=== PATIENT | female | born 1945 | race Caucasian/White ===

== ENCOUNTER 2018-02-05 10:53 | Emergency (ER) | payer MEDICARE ==
[~2018-02-05] VITALS: Ht 157.5 cm; Wt 59.0 kg
[2018-02-05 10:55] VITALS: BP 151/102
--- NOTE | 2018-02-05 11:33 | RAD ---
Left ankle 3 views. HISTORY: Left ankle pain, fell 3 views were taken of the left ankle. There is no acute fracture. There is an old fracture of the fifth metatarsal. There is calcification at the plantar aspect calcaneus and at the insertion of the Achilles tendon. There is mild arthritis with slight spurring at the ankle. IMPRESSION: 1. No acute fracture noted in the left ankle. Electronically signed by: Phil Su MD (02/05/2018 11:30 AM) [facility]
--- NOTE | 2018-02-05 15:25 | ED.ADGEN ---
Past History Past Medical History: Asthma, Diabetes, Hypertension, Hypothyroid, TIA Past Surgical History: Cholecystectomy, Hysterectomy Alcohol Use: Occasionally Drug Use: None Adult General Chief Complaint Chief Complaint Left ankle injury HPI HPI Patient is a 72-year-old female who presents with light ankle injury after twisting ankle yesterday. No other injury or pain complaint.[] Review of Systems Review of Systems Review symptoms as per history of present illness. No other acute symptoms or complaints All other systems were reviewed and found to be within normal limits, except as documented in this note. Allergies Allergies Allergies Coded Allergies Type Severity Reaction Last Updated Verified No Known Drug Allergies 02/05/18 No Physical Exam Physical Exam Constitutional: Well developed, well nourished, no acute distress, non-toxic appearance. [] HENT: Normocephalic, atraumatic, bilateral external ears normal, oropharynx moist, no oral exudates, nose normal. [] Extremities: Left lower extremity, no knee pain, swelling, injury. Left ankle, medial malleolus tenderness swelling, no deformity. No foot pain tenderness or swelling.. [] Psychologic: Affect normal, judgement normal, mood normal. [] Current Patient Data Vital Signs Vital Signs Date Time Temp Pulse Resp B/P (MAP) Pulse Ox O2 Delivery O2 Flow Rate FiO2 02/05/18 10:55 89 18 98 Room Air EKG EKG [] Radiology/Procedures Radiology/Procedures [Left ankle x-ray:: No obvious displaced fracture per radiology report] Course & Med Decision Making Course & Med Decision Making Pertinent Labs and Imaging studies reviewed. (See chart for details) [Recommend supportive care with PCP follow-up. Final Impression Final Impression [Left ankle injury] Dragon Disclaimer Dragon Disclaimer This electronic medical record was generated, in whole or in part, using a voice recognition dictation system. DULCE MARIA HINOJOSA DO Feb 05, 2018 15:25
== END 2018-02-05 11:44 | disposition home or self-care (01) ==
LOC: ER 10:53
DX: S99.912A Unspecified injury of left ankle, initial encounter (principal); J45.909 Unspecified asthma, uncomplicated; E11.9 Type 2 diabetes mellitus without complications; I10 Essential (primary) hypertension; E03.9 Hypothyroidism, unspecified; Z86.73 Personal history of transient ischemic attack (TIA), and cerebral infarction without residual deficits; X50.1XXA Overexertion from prolonged static or awkward postures, initial encounter; Y93.89 Activity, other specified; Y92.89 Other specified places as the place of occurrence of the external cause; Y99.8 Other external cause status
CPT/HCPCS: 73610; 99284

== ENCOUNTER → 2019-06-06 | Outpatient (CLI) | payer MEDICARE ==
--- NOTE | 2019-06-06 15:39 | RAD ---
Bone densitometry 06/06/2019 2:41 PM Indication: : Postmenopausal screening exam history of osteoporosis. History of early menopause.. Comparison Study: None Discussion: Bone Densitometry was performed with dual photon absorption of the lumbar spine and proximal right femur Lumbar Spine: Bone average density is 1.318g/cm2 for L1-L4. T-Score is 1.2. Right femoral neck: Bone average density is 0.812g/cm2. T-Score is -1.6. IMPRESSION: Osteopenia based on decreased bone mineral density, right femoral neck. Note: Definitions established by the World Health Organization: Normal: T-score is -1.0 or above. Osteopenia: T-score is between -1.0 and -2.5. Osteoporosis: T-score is -2.5 or below. Electronically signed by: Americo Renee MD (06/06/2019 3:36 PM) [id number]
--- NOTE | 2019-06-07 14:10 | RAD ---
History: Routine screening. Technique: Bilateral digital mammographic routine views were obtained with 2-D and 3-D technique including use of CAD - computer aided detection. Comparison: 05/30/2017, 04/12/2014.. Findings: Breast Tissue Density B :The breast tissue is composed of mixed fatty and fibroglandular tissue. There are no suspicious masses, microcalcifications or areas of architectural distortion. Impression: Negative mammogram. BI-RADS Category 1: Negative. Normal interval followup. A mammogram does not have 100% sensitivity and therefore a negative imaging study should not delay further work up of a suspicious abnormality. The patient will receive a letter with the results in the mail. Patient information is entered into the reminder system with a target due date for the next screening mammogram. The patient will receive a reminder. "Our facility is accredited by the [employer] Mammography Program." BI-RADS 1 -- negative findings (within normal)
== END | disposition home or self-care (01) ==
LOC: DXRAD 14:34
PROVIDERS: ATTEND Family Medicine
DX: Z12.31 Encounter for screening mammogram for malignant neoplasm of breast (principal); M85.88 Other specified disorders of bone density and structure, other site
CPT/HCPCS: 77063; 77067; 77080

== ENCOUNTER 2021-01-03 19:05 | Emergency (ER) | payer MEDICARE ==
[~2021-01-03] VITALS: Ht 157.5 cm; Wt 69.0 kg
--- NOTE | 2021-01-03 19:14 | PHYS DOC ---
Past History Past Medical History: Asthma, Diabetes, Hypertension, Hypothyroid, TIA Past Surgical History: Cholecystectomy, Hysterectomy Alcohol Use: Occasionally Drug Use: None Adult General HPI HPI Patient is a 75-year-old female presenting via EMS for strokelike symptoms. Symptom onset was 1820 hrs. today and witnessed at home by family members who are all registered nurses. Patient was noticed without any exposure, ingestion, trauma or mechanism of injury having motor weakness to left lower face, left upper extremity and left lower extremity. This concerned family members prompting them to call EMS. On arrival, symptoms had improved. Nonetheless, patient has significant history of TIA and CVA in the past and currently on aspirin and Plavix therapy so all in agreement for transport to our facility for continued evaluation. Patient's glucose and vitals unremarkable in route. She remained asymptomatic until ER arrival when symptoms reoccurred. On arrival she denies any pain, states it does feel more weak than usual to left lower face, left arm and left leg that is past her typical baseline as she has history of residual left-sided deficit from prior CVA Review of Systems Review of Systems Fourteen body systems of review of systems have been reviewed. See HPI for pertinent positives and negative responses, other beverly all other systems are negative, non-pertinent or non-contributory Allergies Allergies Allergies Coded Allergies Type Severity Reaction Last Updated Verified No Known Drug Allergies 02/05/18 No Physical Exam Physical Exam Constitutional: GCS 15. Pt appears well-developed and well-nourished. Left lower facial paralysis noted on arrival HEENT: Head: Normocephalic and atraumatic. TMs clear, no hemotympanum Conjunctivae and EOM are normal. Pupils are equal, round, and reactive to light. Oropharynx is clear and moist. No hematomas or lacerations or abrasions to face or scalp OP clear, no blood, no malocclusion, dentition intact Nares clear, no nasal septal hematoma Midface stable Neck: C-spine midline nontender, no step-offs Cardiovascular: Normal rate, regular rhythm and normal heart sounds. Pulmonary/Chest: Effort normal and breath sounds normal. No respiratory distress. No wheezes. CTA bilaterally Abdominal: Soft. Bowel sounds are normal. Pt exhibits no distension. There is no tenderness. Musculoskeletal: No bony tenderness to extremities, no deformities, full ROM extremities Chest wall stable Pelvis stable and non-tender No vertebral TTP and spine without stepoffs Neurological: Pt is alert and oriented to person and place but not time Moving all extremities willfully, able to wiggle all fingers and toes Patient has focal neurologic deficit noted on arrival, minor paralysis noted to left lower portion of the face that spares forehead Sensory function fully intact in the entire body Motor function fully intact in entire body with no gross deficits noted Downgoing toes bilaterally with stimulation Skin: Skin is warm and dry. No abrasions, no lacerations Psychiatric: Behavior is appropriate for situation Current Patient Data Vital Signs Vital Signs Date Time Temp Pulse Resp B/P (MAP) Pulse Ox O2 Delivery O2 Flow Rate FiO2 01/03/21 19:45 71 16 117/88 (98) 96 Room Air Vital Signs Date Time Temp Pulse Resp B/P (MAP) Pulse Ox O2 Delivery O2 Flow Rate FiO2 01/03/21 20:15 72 16 150/71 (97) 99 Room Air Lab Results Laboratory Tests Test 01/03/21 19:25 01/03/21 19:59 01/03/21 20:08 01/03/21 20:20 Prothrombin Time 10.0 SEC Prothromb Time International Ratio 1.0 Activated Partial Thromboplast Time 22 SEC Sodium Level 142 mmol/L Potassium Level 3.7 mmol/L Chloride Level 105 mmol/L Carbon Dioxide Level 26 mmol/L Anion Gap 11 Blood Urea Nitrogen 11 mg/dL Creatinine 0.8 mg/dL Estimated GFR (Cockcroft-Gault) 69.7 Glucose Level 120 mg/dL Calcium Level 9.0 mg/dL Troponin I Quantitative < 0.017 ng/mL White Blood Count 7.9 x10^3/uL Red Blood Count 4.29 x10^6/uL Hemoglobin 14.0 g/dL Hematocrit 41.8 % Mean Corpuscular Volume 97 fL Mean Corpuscular Hemoglobin 33 pg Mean Corpuscular Hemoglobin Concent 34 g/dL Red Cell Distribution Width 14.4 % Platelet Count 223 x10^3/uL Neutrophils (%) (Auto) 46 % Lymphocytes (%) (Auto) 39 % Monocytes (%) (Auto) 9 % Eosinophils (%) (Auto) 5 % Basophils (%) (Auto) 1 % Neutrophils # (Auto) 3.6 x10^3uL Lymphocytes # (Auto) 3.1 x10^3/uL Monocytes # (Auto) 0.7 x10^3/uL Eosinophils # (Auto) 0.4 x10^3/uL Basophils # (Auto) 0.1 x10^3/uL SARS-CoV-2 Antigen (Rapid) Negative Urine Collection Type U cath Urine Color Yellow Urine Clarity Clear Urine pH 5.5 Urine Specific Adams 1.020 Urine Protein Neg Urine Glucose (UA) Neg mg/dL Urine Ketones (Stick) Neg mg/dL Urine Blood Neg Urine Nitrite Neg Urine Bilirubin Neg Urine Urobilinogen Dipstick 0.2 mg/dL Urine Leukocyte Esterase Neg Urine RBC 0 /HPF Urine WBC 0 /HPF Urine Squamous Epithelial Cells Occ /LPF Urine Bacteria Few /HPF Current Medications Medications (Trade) Dose Ordered Sig/Taye Route PRN Reason Start Time Stop Time Status Last Admin Dose Admin Iohexol (Omnipaque 350 Mg/ml) 75 ml 1X ONCE IV 01/03/21 21:00 01/03/21 21:01 DC 01/03/21 21:15 Acetaminophen (Tylenol) 650 mg 1X ONCE PO 01/03/21 22:00 01/03/21 22:01 DC 01/03/21 22:07 EKG EKG EKG ordered and interpreted by myself at 1944 hrs. is sinus rhythm at 71 bpm, unremarkable intervals, no axis deviation, there is a lot of artifact on the EKG but there is no obvious ischemic findings, no STEMI Radiology/Procedures Radiology/Procedures EXAMINATION: CT head without IV contrast INDICATION:75 years, Female, code stroke. COMPARISON: None TECHNIQUE: Spiral acquisition of contiguous images from the skull base to the ve rtex were obtained. Sagittal and coronal 2D reformatted series were provided by the technologist. Soft tissue and bone window algorithms were reviewed. Exposure: One or more of the following individualized dose reduction techniques were utilized for this examination: 1. Automated exposure control 2. Adjustment of the mA and/or kV according to patient size 3. Use of iterative reconstruction technique. FINDINGS: Neither mass, midline shift, intracranial hemorrhage, acute/subacute ischemic changes, nor extraaxial fluid collections are seen. Moderate brain parenchymal volume loss. Supratentorial periventricular white matter hypodensities, indeterminate but most likely representing chronic microangiopathic disease. Chronic infarcts in the left frontal lobe adjacent to the frontal horn of left lateral ventricle and in the left basal ganglia. The paranasal sinuses, mastoid air cells, and middle ears are clear.The orbital contents appear within normal limits. IMPRESSION: 1. No evidence of acute intracranial abnormality. 2. Supratentorial periventricular white matter hypodensities, indeterminate but most likely representing chronic microangiopathic disease. 3. Chronic infarcts in the left frontal lobe adjacent to the frontal horn of left lateral ventricle and in the left basal ganglia. Recommend further evaluation with MRI brain. ////////////////////////////////////// EXAMINATION: Chest radiograph. VIEWS: Single view COMPARISON: None INDICATION:75 years, Female, code stroke. FINDINGS: Normal cardiomediastinal silhouette. Patchy airspace opacity in the left lung base. No pleural effusion or pneumothorax. No acute osseous process. IMPRESSION: Patchy airspace opacity in the left lung base, differential includes atelectatic changes, aspiration or pneumonia. Electronically signed by: Juana Nguyen MD (01/03/2021 8:00 PM) [facility] //////////////////////////////// EXAMINATION: CTA HEAD AND NECK W/WO CONTRAST INDICATION:75 years, Female, left lower facial paralysis. TECHNIQUE: Noncontrast head CT was performed in correlation with this exam. After bolus of intravenous contrast, volumetric CT data acquisition was acquired of the head and neck. Multiplanar reconstruction images to include MIP and 3-D reconstruction images are submitted. Exposure: One or more of the following individualized dose reduction techniques were utilized for this examination: 1. Automated exposure control 2. Adjustment of the mA and/or kV according to patient size 3. Use of iterative reconstruction technique. COMPARISON: None FINDINGS: Any determination of stenosis is based on NASCET criteria. Head CTA: ICA: Left ICA is occluded. Right ICA is patent without significant stenosis. MCA: No stenosis, occlusion or aneurysm. DARIN: No stenosis, occlusion or aneurysm. TEMPLATE MAKER: No stenosis, occlusion or aneurysm. Basilar artery: No stenosis, occlusion or aneurysm. Distal vertebral arteries: No stenosis, occlusion or aneurysm. CT angiogram neck: Aortic arch: Patent Common carotid arteries: No stenosis, occlusion or dissection. Internal carotid arteries: Left ICA is occluded from the bifurcation. Right ICA is patent. External carotid arteries: Patent Vertebral arteries: No stenosis, occlusion or dissection. Imaged lung apices demonstrate subsegmental atelectasis versus scarring in the upper lobes. Soft tissues appear normal. Bones: No pathologic osseous lesions. Mild multilevel degenerative changes in the spine. IMPRESSION: Occluded left ICA from the bifurcation with reconstitution at the level of the carotid terminus via collaterals. The remaining intracranial arteries are patent without significant stenosis. Electronically signed by: Juana Nguyen MD (01/03/2021 9:57 PM) [facility] Heart Score C/O Chest Pain: No Risk Factors: Risk Factors: DM, Current or recent (<one month) smoker, HTN, HLP, family history of CAD, obesity. Risk Scores: Risk Factors: DM, Current or recent (<one month) smoker, HTN, HLP, family history of CAD, obesity. Course & Med Decision Making Course & Med Decision Making On arrival, code stroke activated Patient who had left facial, upper and lower extremity motor paralysis that resolved had recurrence of symptoms immediately on ER arrival NIH stroke scale performed and a 2 (orientation & minor facial palsy), CT head performed and negative, brought back to ER room and comprehensive ER work-up ensued Granddaughter and subsequent daughter were at bedside. I reviewed entirety of ER work-up with them that was concerning for potential aspiration pneumonia and so Unasyn was started I also discussed transient left lower facial, left upper extremity and left lower extremity symptoms that were self-limiting and self resolved in 30 seconds at home, resolved after 30 minutes while in ER and have yet to recur throughout remaining ER visit Per family request, I contacted [facility] and reviewed case with numerous subspecialists. Joint decision among all that patient is not a can didate for TPA or invasive intervention such as thrombectomy. Transfer for MRI is indicated and patient accepted under their care I updated family on absence of any emergent or surgical issues but discussed conversation with subspecialists at [facility] and need for hospital transfer for MRI and further inpatient medical work-up, they were amenable. NIH stroke scale 0 on repeat evaluation prior to ER transfer via EMS Critical Care Time This patient required critical care. Due to the fact that the patient required a significant amount of one on one physician - patient contact time, ordering and review of studies, arranging urgent treatment with development of a management plan, evaluation of patients response to treatment with frequent reassessments, and discussions with other providers this patient required 40 minutes of critical care time. Critical care time was indicated due to the inherent instability and/or potential for instability in this patient. The critical care time that is allocated to this patient is above and beyond any time spent on any other billable procedures performed on this patient. Dragon Disclaimer Dragon Disclaimer This electronic medical record was generated, in whole or in part, using a voice recognition dictation system. NIH Stroke Scale: NIH Stroke Scale Response (Comments) Value Level of Consciousness: 0 Alert/Responsive 0 LOC Questions: 1 Answers one correctly 1 LOC Commands: 0 Performs both tasks 0 Best Gaze: 0 Normal 0 Visual: 0 No visual loss 0 Facial Palsy: 1 Minor paralysis 1 Motor - Left Arm 0 No drift 0 Motor - Right Arm 0 No drift 0 Motor - Left Leg 0 No drift 0 Motor: Right Leg 0 No drift 0 Limb Ataxia: 0 Absent 0 Sensory: 0 No loss 0 Best Language: 0 Normal 0 Dysathria: 0 Normal 0 Extinction and Inattention: 0 Normal 0 Total 2 Departure Departure: Impression: Primary Impression: TIA (transient ischemic attack) Additional Impressions: Left lower lobe pulmonary infiltrate History of CVA with residual deficit History of right-sided carotid endarterectomy History of carotid artery disease Disposition: [address] [facility] Admitting Physician: Other (dr olmos) Condition: STABLE Referrals: JESUS PANDA DO (PCP) Problem Qualifiers ASHLEY FISHER DO Jan 03, 2021 19:14
--- NOTE | 2021-01-03 19:28 | RAD ---
EXAMINATION: CT head without IV contrast INDICATION:75 years, Female, code stroke. COMPARISON: None TECHNIQUE: Spiral acquisition of contiguous images from the skull base to the vertex were obtained. S agittal and coronal 2D reformatted series were provided by the technologist. Soft tissue and bone win davin algorithms were reviewed. Exposure: One or more of the following individualized dose reduction techniques were utilized for thi s examination: 1. Automated exposure control 2. Adjustment of the mA and/or kV according to patient size 3. Use of iterative reconstruction technique. FINDINGS: Neither mass, midline shift, intracranial hemorrhage, acute/subacute ischemic changes, nor extraaxial fluid collections are seen. Moderate brain parenchymal volume loss. Supratentorial periventricular w tamanna matter hypodensities, indeterminate but most likely representing chronic microangiopathic diseas e. Chronic infarcts in the left frontal lobe adjacent to the frontal horn of left lateral ventricle a nd in the left basal ganglia. The paranasal sinuses, mastoid air cells, and middle ears are clear.The orbital contents appear withi n normal limits. IMPRESSION: 1. No evidence of acute intracranial abnormality. 2. Supratentorial periventricular white matter hypodensities, indeterminate but most likely represen ting chronic microangiopathic disease. 3. Chronic infarcts in the left frontal lobe adjacent to the frontal horn of left lateral ventricle and in the left basal ganglia. Recommend further evaluation with MRI brain. FOR INTERNAL CODING PURPOSES Critical result: Findings discussed with DO Malik at 01/03/2021 7:23 PM. RESULT CODE: (C) Electronically signed by: Juana Nguyen MD (01/03/2021 7:25 PM) [facility]
--- NOTE | 2021-01-03 20:02 | RAD ---
EXAMINATION: Chest radiograph. VIEWS: Single view COMPARISON: None INDICATION:75 years, Female, code stroke. FINDINGS: Normal cardiomediastinal silhouette. Patchy airspace opacity in the left lung base. No pleural effusi on or pneumothorax. No acute osseous process. IMPRESSION: Patchy airspace opacity in the left lung base, differential includes atelectatic changes, aspiration or pneumonia. Electronically signed by: Juana Nguyen MD (01/03/2021 8:00 PM) [facility]
[2021-01-03 20:08] LABS: CREATININE 0.8 mg/dL (0.6-1.0); GFR 69.7; POTASSIUM 3.7 mmol/L (3.5-5.1)
[2021-01-03 20:12] LABS: BASO # 0.1 x10^3/uL (0.0-0.2); BASO % 1 % (0-3); EOS # 0.4 x10^3/uL (0.0-0.7); EOS % 5 % (0-3); HEMATOCRIT 41.8 % (36.0-47.0); LYMPH # 3.1 x10^3/uL (1.0-4.8); LYMPH % 39 % (24-48); MEAN CORPUSCULAR HEMOGLOBIN 33 pg (25-35); MEAN CORPUSCULAR HGB CONC 34 g/dL (31-37); MEAN CORPUSCULAR VOLUME 97 fL (79-100); MONO # 0.7 x10^3/uL (0.0-1.1); MONO % 9 % (0-9); NEUT # 3.6 x10^3uL (1.8-7.7); NEUT % 46 % (31-73); PLATELET COUNT 223 x10^3/uL (140-400); RED BLOOD COUNT 4.29 x10^6/uL (3.50-5.40); RED CELL DISTRIBUTION WIDTH 14.4 % (11.5-14.5); WHITE BLOOD COUNT 7.9 x10^3/uL (4.0-11.0)
[2021-01-03] MEDS: IOHEXOL 350 MG/ML 100 ML VIAL. IV ONE (21:15)
[2021-01-03 21:23] LABS: BACTERIA,URINE FEW /HPF (0-FEW); BILIRUBIN,URINE NEG (NEG); CLARITY,URINE CLEAR; COLOR,URINE YELLOW; GLUCOSE,URINE NEG (NEG); NITRITE,URINE NEG (NEG); RBC,URINE 0 /HPF (0-2); SQUAMOUS EPITHELIAL CELL,UR OCC /LPF; UROBILINOGEN,URINE 0.2 mg/dL (0.2 mg/dL); WBC,URINE 0 /HPF (0-4)
--- NOTE | 2021-01-03 22:00 | RAD ---
EXAMINATION: CTA HEAD AND NECK W/WO CONTRAST INDICATION:75 years, Female, left lower facial paralysis. TECHNIQUE: Noncontrast head CT was performed in correlation with this exam. After bolus of intravenou s contrast, volumetric CT data acquisition was acquired of the head and neck. Multiplanar reconstruct ion images to include MIP and 3-D reconstruction images are submitted. Exposure: One or more of the following individualized dose reduction techniques were utilized for thi s examination: 1. Automated exposure control 2. Adjustment of the mA and/or kV according to patient size 3. Use of iterative reconstruction technique. COMPARISON: None FINDINGS: Any determination of stenosis is based on NASCET criteria. Head CTA: ICA: Left ICA is occluded. Right ICA is patent without significant stenosis. MCA: No stenosis, occlusion or aneurysm. DARIN: No stenosis, occlusion or aneurysm. ANIMAL CONTROL LICENSING WORKER: No stenosis, occlusion or aneurysm. Basilar artery: No stenosis, occlusion or aneurysm. Distal vertebral arteries: No stenosis, occlusion or aneurysm. CT angiogram neck: Aortic arch: Patent Common carotid arteries: No stenosis, occlusion or dissection. Internal carotid arteries: Left ICA is occluded from the bifurcation. Right ICA is patent. External carotid arteries: Patent Vertebral arteries: No stenosis, occlusion or dissection. Imaged lung apices demonstrate subsegmental atelectasis versus scarring in the upper lobes. Soft tis sues appear normal. Bones: No pathologic osseous lesions. Mild multilevel degenerative changes in the spine. IMPRESSION: Occluded left ICA from the bifurcation with reconstitution at the level of the carotid terminus via c ollaterals. The remaining intracranial arteries are patent without significant stenosis. Electronically signed by: Juana Nguyen MD (01/03/2021 9:57 PM) [facility]
[2021-01-03] MEDS: ACETAMINOPHEN 325 MG TABLET PO ONE (22:07)
[2021-01-03] MEDS ORDERED: AMPICILLIN/SULBACTAM 3 GM in IV NORMAL SALINE 100ML 100 ML IV ONE (22:15)
[2021-01-03] MEDS ORDERED: IV NORMAL SALINE 50ML 50 ML ONE ×2 (22:25→23:00)
[2021-01-03] MEDS ORDERED: AMPICILLIN/SULBACTAM 1.5 GM VIAL. IV ONE ×2 (22:25→23:00)
[2021-01-03] MEDS: AMPICILLIN/SULBACTAM 1.5 GM in IV NORMAL SALINE 50ML 50 ML IV ONE ×2 (22:30→23:00)
[2021-01-03] MEDS: traMADol 50 MG TABLET PO ONE (23:23)
--- NOTE | 2021-01-03 23:35 | EKG ---
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
[2021-01-04 00:41] VITALS: BP 174/63
== END 2021-01-04 01:03 | disposition short-term general hospital (02) ==
LOC: ER 19:05
DX: G45.9 Transient cerebral ischemic attack, unspecified (principal); R91.8 Other nonspecific abnormal finding of lung field; J45.909 Unspecified asthma, uncomplicated; E11.9 Type 2 diabetes mellitus without complications; I10 Essential (primary) hypertension; E03.9 Hypothyroidism, unspecified; Z20.822 Contact with and (suspected) exposure to COVID-19; Z86.73 Personal history of transient ischemic attack (TIA), and cerebral infarction without residual deficits
CPT/HCPCS: 36415; 70450; 70496; 70498; 71045; 80048; 81001; 84484; 85025; 85610; 85730; 87426; 93005; 96365; 99291; C9803; J0295; P9612; Q9967; U0003

== ENCOUNTER 2021-01-07 12:04 | Emergency (ER) | payer MEDICARE ==
[~2021-01-07] VITALS: Ht 157.5 cm; Wt 64.3 kg
--- NOTE | 2021-01-07 12:24 | RAD ---
EXAM: Head CT without contrast. HISTORY: Code stroke. TECHNIQUE: Computed tomographic images of the head were obtained without contrast. *One or more of the following individualized dose reduction techniques were utilized for this examina tion: 1. Automated exposure control. 2. Adjustment of the mA and/or kV according to patient size. 3. Use of iterative reconstruction technique. COMPARISON: 01/03/2021. FINDINGS: There is no acute or subacute extra-axial or intraparenchymal hemorrhage. There is no mass effect or midline shift. There is no hydrocephalus. There are areas of decreased attenuation within the cerebral white matter, nonspecific and likely rel ated to chronic small vessel disease. There is cerebral atrophy with compensatory enlargement of the ventricles. There is a chronic lacunar infarct within the left basal ganglia and adjacent external ca psule. There is also a small focus of encephalomalacia likely due to chronic infarction involving the left cerebellum. There is cerebral atrophy. The visualized portions of the orbits, paranasal sinuses and mastoid air cells are unremarkable. No s uspicious calvarial lesion is seen. IMPRESSION: 1. No acute intracranial finding. MRI is more sensitive for acute infarction. 2. Extensive cerebral white matter changes, likely due to chronic small vessel disease in a patient o f this age. 3. Chronic infarct within the left basal ganglia and external capsule and left cerebellum. 4. Cerebral atrophy. Findings were discussed with Dr. Buckley in the ED at 1220 hours on 01/07/2021. Electronically signed by: Elodia Rivas MD (01/07/2021 12:21 PM) [id number]
--- NOTE | 2021-01-07 12:24 | EKG ---
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
[2021-01-07 12:32] LABS: BASO # 0.1 x10^3/uL (0.0-0.2); BASO % 1 % (0-3); EOS # 0.1 x10^3/uL (0.0-0.7); EOS % 1 % (0-3); HEMATOCRIT 45.3 % (36.0-47.0); HEMOGLOBIN 14.9 g/dL (12.0-15.5); LYMPH # 3.7 x10^3/uL (1.0-4.8); LYMPH % 29 % (24-48); MEAN CORPUSCULAR HEMOGLOBIN 32 pg (25-35); MEAN CORPUSCULAR HGB CONC 33 g/dL (31-37); MEAN CORPUSCULAR VOLUME 97 fL (79-100); MONO # 0.8 x10^3/uL (0.0-1.1); MONO % 7 % (0-9); NEUT # 7.8 x10^3uL (1.8-7.7); NEUT % 62 % (31-73); PLATELET COUNT 264 x10^3/uL (140-400); RED BLOOD COUNT 4.66 x10^6/uL (3.50-5.40); RED CELL DISTRIBUTION WIDTH 14.2 % (11.5-14.5); WHITE BLOOD COUNT 12.6 x10^3/uL (4.0-11.0)
[2021-01-07 12:38] LABS: CALCIUM 9.4 mg/dL (8.5-10.1); CREATININE 0.8 mg/dL (0.6-1.0); GFR 69.7; POTASSIUM 4.6 mmol/L (3.5-5.1)
[2021-01-07 12:44] LABS: ALBUMIN 3.9 g/dL (3.4-5.0); ALBUMIN/GLOBULIN RATIO 1.2 (1.0-1.7); TOTAL BILIRUBIN 0.7 mg/dL (0.2-1.0); TOTAL PROTEIN 7.2 g/dL (6.4-8.2)
--- NOTE | 2021-01-07 12:59 | PHYS DOC ---
Past History Past Medical History: Asthma, Diabetes, Hypertension, Hypothyroid, TIA Past Surgical History: No Surgical History Alcohol Use: None Drug Use: None General Adult EDM: Chief Complaint: NEURO SYMPTOMS/DEFICITS HPI: HPI: 75-year-old female presents via EMS as a code stroke. Her last known well was 11:30 AM. The patient is unable to answer questions of the entire history comes from EMS reports and family. The patient recently was seen in this facility for TIA and was transferred to [facility]. Family who accompanies her states that she returned to baseline during that stay and she was discharged to home 2 days ago. She has been acting normal at home, but not eating well. Today she was headed upstairs to have lunch when she stated that she did not feel well and sat down with family on the steps. She then became very wobbly and stopped answering questions and started having paralysis of the left side of her body. When EMS arrived they reported left-sided paralysis upper and lower extremities. She was able to say yes, was not answering questions appropriately. She was not saying anything else. Review of Systems: Review of Systems: Unable to evaluate as patient cannot answer. Allergies: Allergies: Allergies Coded Allergies Type Severity Reaction Last Updated Verified No Known Drug Allergies 02/05/18 No Physical Exam: PE: Constitutional: Well developed, well nourished, non-toxic appearance. [] HENT: Normocephalic, atraumatic, bilateral external ears normal, oropharynx moist, no oral exudates, nose normal. [] Eyes: PERRLA, EOMI, conjunctiva normal, no discharge. [] Neck: Normal range of motion, no tenderness, supple, no stridor. [] Cardiovascular: Heart rate 93, regular rhythm, no murmur [] Lungs & Thorax: Bilateral breath sounds clear to auscultation [] Abdomen: Bowel sounds normal, soft, no masses, no pulsatile masses. [] Skin: Warm, dry, no erythema, no rash. [] Back: No obvious trauma. [] Extremities: No cyanosis, no clubbing, no edema. [] Neurologic: Moving all 4 extremities, many nonpurposeful movements. See NIH stroke scale [] Psychologic: Unable to assess. [] Current Patient Data: Labs: Laboratory Tests Test 01/07/21 12:14 Glucose (Fingerstick) 144 mg/dL (70-99) H EKG: EKG: [] Radiology/Procedures: Radiology/Procedures: [] Impressions: EXAM: Head CT without contrast. HISTORY: Code stroke. TECHNIQUE: Computed tomographic images of the head were obtained without contrast. *One or more of the following individualized dose reduction techniques were utilized for this examination: 1. Automated exposure control. 2. Adjustment of the mA and/or kV according to patient size. 3. Use of iterative reconstruction technique. COMPARISON: 01/03/2021. FINDINGS: There is no acute or subacute extra-axial or intraparenchymal hemorrhage. There is no mass effect or midline shift. There is no hydrocephalus. There are areas of decreased attenuation within the cerebral white matter, nonspecific and likely related to chronic small vessel disease. There is cerebral atrophy with compensatory enlargement of the ventricles. There is a chronic lacunar infarct within the left basal ganglia and adjacent external capsule. There is also a small focus of encephalomalacia likely due to chronic infarction involving the left cerebellum. There is cerebral atrophy. The visualized portions of the orbits, paranasal sinuses and mastoid air cells are unremarkable. No suspicious calvarial lesion is seen. IMPRESSION: 1. No acute intracranial finding. MRI is more sensitive for acute infarction. 2. Extensive cerebral white matter changes, likely due to chronic small vessel disease in a patient of this age. 3. Chronic infarct within the left basal ganglia and external capsule and left cerebellum. 4. Cerebral atrophy. Findings were discussed with Dr. Shaver in the ED at 1220 hours on 01/07/2021. Electronically signed by: Elodia Collado MD (01/07/2021 12:21 PM) [id number] DICTATED AND SIGNED BY: ELODIA COLLADO MD DATE: 01/07/21 1217 CC: DULCE MARIA SHAVER DO; JESUS PANDA DO ~MTH0 0 Heart Score: C/O Chest Pain: N/A Risk Factors: Risk Factors: DM, Current or recent (<one month) smoker, HTN, HLP, family history of CAD, obesity. Risk Scores: Score 0 - 3: 2.5% MACE over next 6 weeks - Discharge Home Score 4 - 6: 20.3% MACE over next 6 weeks - Admit for Clinical Observation Score 7 - 10: 72.7% MACE over next 6 weeks - Early Invasive Strategies Course & Med Decision Making: Course & Med Decision Making Pertinent Labs and Imaging studies reviewed. (See chart for details) The patient was spontaneously moving all extremities. She has no fixed gaze. Her NIH score for me is a 14, but 8 of those points are for limb weakness. Is difficult to tell if she has actually decreased strength or just unable to follow directions. During her time in the ER she has been able to say some additional words that are clear. She is still not following directions or answering questions appropriately. I consulted [facility] neurology and spoke with Dr. Hung. She reviewed the patient's [facility] chart and believes this could be some variant of seizure. She has after that I load the patient with a gram of Keppra. We will avoid TPA as the presentation may not be a stroke. The transfer doctor, Dr. Roberts has accepted the patient for transfer. The patient's labs are unremarkable. She will go by ambulance to [facility]. Family is in agreement with this plan. [] Dragon Disclaimer: Dragdenis Disclaimer: This electronic medical record was generated, in whole or in part, using a voice recognition dictation system. NIH Stroke Scale: NIH Stroke Scale Response (Comments) Value Level of Consciousness: 0 Alert/Responsive 0 LOC Questions: 2 Answers neither correct 2 LOC Commands: 2 Perform neither task 2 Best Gaze: 0 Normal 0 Visual: 0 No visual loss 0 Facial Palsy: 0 Normal, symmetrical 0 Motor - Left Arm 1 Drifts, but can hold 1 Motor - Right Arm 1 Drifts but can hold 1 Motor - Left Leg 2 Some effort 2 Motor: Right Leg 2 Some effort 2 Limb Ataxia: 0 Absent 0 Sensory: 0 No loss 0 Best Language: 2 Severe aphasia 2 Dysathria: 1 Mild to moderate 1 Extinction and Inattention: 1 One sensory modality 1 Total 14 Departure Departure: Impression: Primary Impression: Stroke-like symptoms Additional Impressions: Seizure-like activity AMS (altered mental status) Speech and language deficits Disposition: 02 [facility]ORT TERM [facility]OSPITAL Condition: STABLE Referrals: JESUS PANDA DO (PCP) DULCE MARIA SHAVER DO Jan 07, 2021 12:59
[2021-01-07] MEDS ORDERED: levETIRAcetam 500 MG/5 ML VIAL IV ONE (13:02)
[2021-01-07] MEDS ORDERED: IV NORMAL SALINE 100ML 100 ML ONE (13:05)
[2021-01-07 16:10] VITALS: BP 122/75
== END 2021-01-07 16:30 | disposition short-term general hospital (02) ==
LOC: ER 12:04
DX: R56.9 Unspecified convulsions (principal); R41.82 Altered mental status, unspecified; F80.9 Developmental disorder of speech and language, unspecified; G83.9 Paralytic syndrome, unspecified; J45.909 Unspecified asthma, uncomplicated; E11.9 Type 2 diabetes mellitus without complications; I10 Essential (primary) hypertension; E03.9 Hypothyroidism, unspecified; Z86.73 Personal history of transient ischemic attack (TIA), and cerebral infarction without residual deficits
CPT/HCPCS: 36415; 70450; 80053; 82947; 84484; 85025; 85610; 85730; 93005; 96374; 96375; 99285; J1953; J2060

== ENCOUNTER → 2021-04-09 | Outpatient (CLI) | payer MEDICARE ==
--- NOTE | 2021-04-10 10:37 | RAD ---
Bilateral lower extremity ABIs for portion relation, history of smoking, leg pain. FINDINGS: The SALTY on the right is 1.1 and on the left 1.0. These are normal. IMPRESSION: 1. Normal bilateral lower extremity ABIs. Electronically signed by: Jeremias Masters MD (04/10/2021 10:35 AM) [id number]
== END ==
LOC: US 16:00
PROVIDERS: ATTEND Family Medicine
DX: R09.89 Other specified symptoms and signs involving the circulatory and respiratory systems (principal); M79.604 Pain in right leg; M79.605 Pain in left leg; Z87.891 Personal history of nicotine dependence
CPT/HCPCS: 93923